=== PATIENT | male | born 1960 | race Caucasian/White ===

== ENCOUNTER 2024-09-10 10:15 | Emergency (ER) | payer MEDICARE, BC ==
[~2024-09-10] VITALS: Ht 182.9 cm; Wt 86.4 kg
[2024-09-10] MEDS ORDERED: ALBU8HFA INH (14:58)
[2024-09-10] MEDS ORDERED: BROM118S60 PO (14:58)
[2024-09-10] MEDS ORDERED: ACET1TAB96 PO (14:58)
[2024-09-10] MEDS ORDERED: AZIT250T PO (14:58)
[2024-09-10] MEDS ORDERED: PRED20TA PO (14:58)
[2024-09-10] MEDS: dexamethasone sod phosphate 10mg/ml inj IM STA (15:07)
[2024-09-10 15:32] VITALS: BP 119/80; PULSE 70; TEMP 98.1; O2SAT 99
[2024-09-10 15:33] VITALS: RESP 16
== END 2024-09-10 15:34 | disposition home or self-care (01) ==
LOC: ER 10:16
DX: J20.9 Acute bronchitis, unspecified (principal); B34.9 Viral infection, unspecified
CPT/HCPCS: 71045; 96372; 99283; J1100